=== PATIENT | male | born 1980 | race Caucasian/White ===

== ENCOUNTER 2021-01-29 15:30 | Emergency (ER) | payer OTHER, SELFPAY ==
[2021-01-29 15:47] VITALS: BP 136/91; PULSE 70; RESP 18; TEMP 36.4; O2SAT 97
--- NOTE | 2021-01-29 16:17 | ED.NAVMDI ---
HPI - Nausea/Vomiting/Diarrhea General Chief complaint: Nausea/Vomiting/Diarrhea Stated complaint: Diarrhea,Vomiting Source: patient and RN notes reviewed Mode of arrival: ambulatory History of Present Illness HPI Narrative: This is a 40-year-old male who presented to urgent care with complaints of nausea vomiting diarrhea, dizziness, chills, subjective fever, inability to tolerate solid foods and throat soreness. According to patient Thursday he developed all of the symptoms and has been declining since that day. Patient notes that when he sleep at night to become diaphoretic and his sheets are soaked. The patient denies SOB, CP, palpitation, extremity numbness, lightheadedness, dizziness, constipation, diarrhea, chills, abdominal pain or fever. He has not been exposed to Covid. 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 MD elicited complaint: nausea, vomiting and diarrhea Related Data Allergies Allergy/AdvReac Type Severity Reaction Status Date / Time ampicillin Allergy Unknown Verified 01/29/21 16:20 cephalexin [From Keflex] Allergy Unknown Verified 01/29/21 16:20 Penicillins Allergy Unknown Verified 01/29/21 16:20 Review of Systems Review of Systems: A 14 organ system Review of Systems was performed and pertinent positives included in the HPI, otherwise remaining ROS is negative. Exam Narrative: GENERAL: This is a well-nourished, well-developed patient, in no apparent distress. HEAD: normocephalic, atraumatic. EYES: PERRL. Sclera clear/white. Vision is grossly intact. EARS: External ears normal, auditory canals clear and without drainage, TMs normal without perforation. Hearing grossly intact. NOSE: External nose normal with no obvious nasal discharge, nares without redness, no rhinorrhea. THROAT: Mucous membranes moist, posterior pharynx erythematous NECK: Neck supple, non-tender without lymphadenopathy, masses or thyromegaly. CARDIOVASCULAR: Regular rate and rhythm without murmurs, gallops, or rubs. RESPIRATORY: Clear to auscultation. Breath sounds equal bilaterally. No wheezes, rales, or rhonchi. GASTROINTESTINAL: Abdomen soft, non-tender, nondistended. Bowel sounds are active. No hepato-splenomegaly, or palpable masses. No guarding. SKIN: warm, intact with no suspicious lesions or rash, good texture and turgor. NEURO: awake, alert, and oriented to person, place and time. There were no obvious focal neurologic abnormalities. Steady gait EXTREMITIES: Normal range of motion. No edema. No calf tenderness. Negative Homans sign bilaterally. BACK: Nontender without deformity or crepitance. No flank tenderness. Course Course Emergency Course: Patient will receive Zofran for his nausea and azithromycin for pharyngitis Vital Signs Vital signs: Vital Signs Temperature 97.6 F 01/29/21 15:47 Pulse Rate 70 01/29/21 15:47 Respiratory Rate 18 01/29/21 15:47 Blood Pressure 136/91 H 01/29/21 15:47 Pulse Oximetry 97 01/29/21 15:47 Temperature 97.6 F 01/29/21 15:47 Pulse Rate 70 01/29/21 15:47 Respiratory Rate 18 01/29/21 15:47 Blood Pressure 136/91 H 01/29/21 15:47 Pulse Oximetry 97 01/29/21 15:47 MDM - Nausea/Vomiting/Diarrhea Differential Diagnosis Differential diagnosis: Likely traveler's diarrhea, food poisoning, gastroenteritis, dehydration and other (Pharyngitis) Discharge Plan Discharge Clinical Impression: Gastroenteritis Pharyngitis Qualifiers: Pharyngitis/tonsillitis etiology: unspecified etiology Qualified Code(s): J02.9 - Acute pharyngitis, unspecified Patient Disposition: Home, Self-Care Condition: Stable Instructions: Antibiotic Form, Gastroenteritis (ED), Acute Nausea and Vomiting (ED) Additional Instructions: Viral Gastroenteritis is self-limited; the typical episode lasts 3 to 7 days. Clear liquids for the [id number] hours, then advance to a bland diet as tolerated A bland diet can consist of--BRAT diet which is bananas, rice, applesauce,
--- NOTE | 2021-01-30 12:58 | PC.NURSE ---
Called in azithromycin 500mg po daily x 10 days #10 and zofran 4mg po q 6 hrs #60 called in to [facility] in [place] on [address]. Left on recorded line as recommended by corporate director of pharmacy.
== END 2021-01-29 16:30 | disposition home or self-care (01) ==
PROVIDERS: Emergency Provider Nurse Practitioner
DX: K21.9 Gastro-esophageal reflux disease without esophagitis (principal); J02.9 Acute pharyngitis, unspecified
CPT/HCPCS: 99203; G0463

== ENCOUNTER 2021-12-12 10:02 | Emergency (ER) | payer OTHER, SELFPAY ==
--- NOTE | 2021-12-12 10:06 | ED.UPPEXIN ---
HPI - Extremity Injury (Upper) General Chief Complaint: Extremity Injury, Upper Stated Complaint: lt wrist injury Time Seen by Provider: 12/12/21 10:27 Source: patient and RN notes reviewed Mode of arrival: ambulatory Limitations: no limitations History of Present Illness HPI narrative: 41-year-old male presents with concern for wrist pain. He reports yesterday while at work, pulling a box of another box he began having wrist pain, reports other actions later in the day such as picking up a heavy object exacerbated the pain. He reports a squeezing sort of pain that radiates to digits 4 and 5, moving digits 4 and 5 exacerbates the wrist pain. He denies any direct trauma, injury, fall. He reports pain at rest 4/10, 9/10 with movement or range of motion. He has been using an Arcadio wrap and took Aleve with little relief. He denies swelling, bruising, redness, open skin, deformity MD complaint: injury to: left and wrist Related Data Allergies Allergy/AdvReac Type Severity Reaction Status Date / Time ampicillin Allergy Unknown Verified 12/12/21 10:24 cephalexin [From Keflex] Allergy Unknown Verified 12/12/21 10:24 Penicillins Allergy Unknown Verified 12/12/21 10:24 Review of Systems Review of Systems: CONSTITUTIONAL: Denies malaise, chills, sweats, or fever. SKIN: Denies rash or itching, open skin, laceration, abrasion, redness, warmth, swelling. MUSCULOSKELETAL: Reports left wrist pain NEUROLOGIC: Denies numbness, weakness All systems reviewed & are unremarkable except as noted in HPI and below PMFSH Comments At time of signature, agree with nursing past medical, surgical, social and family history. There is no relevant family history pertinent to the presenting complaint Exam Narrative: GENERAL: Well-appearing, well-nourished, and in no acute distress. HEAD: Normocephalic, atraumatic. EYES: PERRLA, conjunctivae clear NECK: Supple. CHEST: Speaks in full sentences. No respiratory distress. HEART: Regular rate and rhythm. Normal and equal peripheral pulses. EXTREMITIES: Left wrist, hand, digits have has normal sensation, grossly normal range of motion, decreased left commissions specialist strength. No edema or ecchymosis. Normal sensation with sensitivity to light touch and pain. Ulnar tenderness. No open wounds, no skin tenting, no devitalized tissue or atrophy, no trophic changes, no obvious deformity, alignment normal, nearby joints and structures intact. Distal pulses palpable and equal bilaterally, skin warm, dry, pink. Capillary refill less than 3 seconds. SKIN: Warm, dry, no rash. NEURO: Alert and oriented x3. PSYCH: Normal mood and affect Course Course Emergency Course: At the patient's likely diagnosis is tendinitis, wrist sprain. Discussed that we cannot rule out the possibility of fracture without x-ray, however we do not have an x-ray agricultural technician at this location today, offered patient option of going to [place] for x-ray. Patient does not feel that it is broken and is not insistent upon x-ray at this time. Advised patient that if symptoms worsen, do not improve, he develops bruising or swelling he can return at a later date for an x-ray. Patient is aware of diagnosis, understands and agrees to treatment plan. Anticipatory guidance given. Patient agrees to follow-up as directed and is aware of reasons to seek care at the emergency department. Portions of this record may have been created with voice recognition software Level of Care: Express Care Visit Vital Signs Vital signs: Reviewed. Your blood pressure was elevated above 120/80 today at [facility]. This puts you above the threshold for follow up. Please schedule a follow up visit with your personal physician as soon as possible, for further evaluation and treatment. Even blood pressure exceeding 120/80 may indicate pre-hypertension. MDM - Extremity Injury (Upper) MDM Narrative Medical decision making narrative: Patients pain is consistent with musculoskeletal etiolo
[2021-12-12 10:16] VITALS: BP 154/96; PULSE 72; RESP 18; TEMP 36.2; O2SAT 98
== END 2021-12-12 10:43 | disposition home or self-care (01) ==
PROVIDERS: Emergency Provider Nurse Practitioner
DX: M25.532 Pain in left wrist (principal)
CPT/HCPCS: 99212; G0463

== ENCOUNTER 2022-01-06 10:18 | Emergency (ER) | payer OTHER, SELFPAY ==
--- NOTE | ~2022-01-06 | XR_ITS ---
EXAMINATION: XR chest 2V 01/06/2022 10:57 INDICATION: Cough with shortness of breath. Post Covid. PROCEDURE: 2 view chest COMPARISON: No prior studies for comparison. FINDINGS: The lungs are clear. The cardiomediastinal silhouette is within normal limits. There are no pleural effusions. There is no pneumothorax suspected. IMPRESSION: 1: NO ACUTE CARDIOPULMONARY DISEASE. Reviewed, dictated and finalized at location A.
[2022-01-06 10:30] VITALS: BP 149/86; PULSE 76; RESP 18; TEMP 36.6; O2SAT 100
--- NOTE | 2022-01-06 10:48 | ED.URI ---
HPI - URI/Sore Throat General Chief Complaint: Upper Respiratory Infection Stated Complaint: Cough,Sore Throat,Shortness of Breath Time Seen by Provider: 01/06/22 10:21 Source: patient Mode of arrival: ambulatory Limitations: no limitations History of Present Illness HPI Narrative: 41-year-old male presents to [facility] with complaints of continued nonproductive cough, shortness of breath, body aches, chills and fevers up to 101 for the past 8 days. Patient reports he tested positive for COVID on 12/29/2021. Patient reports that he completed a telehealth visit through his employer and was prescribed Paxlovid and albuterol inhaler at that time. Patient does vape. Patient denies recent travel. Patient denies sick contacts. Patient denies wheezing, headache, dizziness or blurred vision. MD elicited complaint: fever, cough, rhinorrhea and nasal congestion Onset (ago): day(s) (8) Able to tolerate fluids by mouth: Yes Associated symptoms: fever and chills Related Data Home Medications Medication Instructions Recorded Confirmed albuterol sulfate 90 mcg/actuation 2 inh inhalation PRN PRN Shortness 01/06/22 01/06/22 aerosol inhaler Of Breath Or Wheezing Allergies Allergy/AdvReac Type Severity Reaction Status Date / Time ampicillin Allergy Unknown Verified 01/06/22 10:39 cephalexin [From Keflex] Allergy Unknown Verified 01/06/22 10:39 Penicillins Allergy Unknown Verified 01/06/22 10:39 Review of Systems Constitutional: Constitutional: Reports chills, Reports fatigue, Reports fever(s) and Denies weakness ENT: Denies dizziness Cardiovascular: Cardiovascular: Denies chest pain Respiratory: Respiratory: Reports chest congestion, Reports cough, Reports dyspnea and Denies wheezing Gastrointestinal: Gastrointestinal: Denies abdominal pain, Denies bloating, Denies constipation and Denies heartburn Neurologic: Denies vertigo and Denies dizziness Endocrine: Endocrine: Denies fatigue PMFSH Past Medical History Medical History (Updated 01/06/22 @ 11:21 by Francia Blackburn APRN) Tonsillectomy planned Social History Social History (Updated 01/06/22 @ 10:53 by Francia Blackburn APRN) Smoking status: Current every day smoker Tobacco type: e-cigarettes/vaping Comments At time of signature, I agree with nursing past medical, surgical, social and family history. There is no relevant family history pertinent to the presenting complaint. Exam Const: General: healthy appearing Nutritional Appearance: well nourished and obese Orientation/consciousness: patient oriented x3 Limitations: no limitations HENMT: Head: normal to inspection Ears: external ears normal and TM's normal bilaterally General nose exam: Normal external nose present and Normal nares present Face and sinus: normal facial exam Mouth: Yes Normal oral and palatal mucosa present, Yes lip normal and Yes moist mucous membranes Teeth and gingiva: dentition normal Throat: posterior oropharynx normal and uvula midline Neck: Neck: normal visual inspection Resp: Effort & Inspection: normal respiratory effort and not labored Auscultation: clear to auscultation bilaterally, no crackles, no rales, no rhonchi and no wheezes Cardio: Rate: regular rate Rhythm: regular rhythm Heart sounds: no murmurs Skin: General skin exam: normal color Rashes: no rashes Wounds: no wounds Neuro: General: patient oriented x3 and moves all extremities Gait exam (Neuro): Normal gait present Extrem: General: normal to inspection Psych: Mental Status: mental status grossly normal Affect: normal affect Attitude: cooperative Course Course Level of Care: Express Care Visit Vital Signs Vital signs: Vital Signs Temperature 36.6 C 01/06/22 10:30 Pulse Rate 76 01/06/22 10:30 Respiratory Rate 18 01/06/22 10:30 Blood Pressure 149/86 H 01/06/22 10:30 Pulse Oximetry 100 01/06/22 10:30 Oxygen Delivery Room Air 01/06/22 10:30 Temperature 36.6 C
[2022-01-06 16:54] VITALS: BP 149/86; PULSE 76; RESP 18; TEMP 36.6; O2SAT 100
== END 2022-01-06 11:30 | disposition home or self-care (01) ==
PROVIDERS: Emergency Provider Nurse Practitioner Family
DX: B34.9 Viral infection, unspecified (principal); Z86.16 Personal history of COVID-19; F17.290 Nicotine dependence, other tobacco product, uncomplicated
CPT/HCPCS: 71046; 99213; G0463

== ENCOUNTER → 2023-01-12 08:11 | Outpatient (CLI) | payer OTHER, SELFPAY ==
--- NOTE | ~2023-01-12 | CT_ITS ---
EXAMINATION: CT abdomen pelvis wo con DATE: 01/12/2023 08:33 INDICATION: Abnormal weight loss. Abdominal pain. Diarrhea. Blood in stool. TECHNIQUE: Computed tomography (CT) of the abdomen and pelvis was performed without intravenous contr ast. Automated exposure control and iterative reconstruction technique were employed. The dose-length product was 1050.35 mGy-cm. COMPARISON: None. FINDINGS: The visualized portions of the lung bases are clear without pneumonia or pleural effusion. The heart size is normal. No pericardial effusion. The liver, gallbladder, spleen, pancreas, adrenal glands, and kidneys are normal. There is no urolithiasis. The prostate is mildly enlarged. There is d iverticulosis of the colon without evidence of diverticulitis. Stool distends the rectum. The appendi x is normal. There is mild aortic atherosclerosis. There is a small sliding hiatal hernia. There are no pathologically enlarged lymph nodes. There is no ascites. There are chronic bilateral L5 pars defe cts. There is 5 mm anterolisthesis of L5 on S1. There is mild thoracic and lumbar spondylosis. IMPRESSION: 1. Stool distends the rectum. 2. Small sliding hiatal hernia. Reviewed, dictated and finalized at location A.
== END ==
PROVIDERS: PCP Nurse Practitioner; Visit Provider Nurse Practitioner
DX: R63.4 Abnormal weight loss (principal); R10.9 Unspecified abdominal pain; K44.9 Diaphragmatic hernia without obstruction or gangrene
CPT/HCPCS: 74176

== ENCOUNTER 2023-09-18 08:22 | Emergency (ER) | payer OTHER, SELFPAY ==
--- NOTE | 2023-09-18 08:23 | ED.URI ---
HPI - URI/Sore Throat General Chief Complaint: Upper Respiratory Infection Stated Complaint: Sinus Time Seen by Provider: 09/18/23 08:30 Source: patient, RN notes reviewed and old records reviewed Mode of arrival: ambulatory Limitations: no limitations History of Present Illness HPI Narrative: 42 yo male presents to the [facility] with multiple complaints. Patient states that on Thursday he started not feeling well. Had some constipation issues on Thursday, took Dulcolax. Normal BM yesterday. States that he started vomiting yesterday multiple times, had trouble keeping fluids down to include water. Has vomited 3 times today. Extremely nauseated. Reports also cough, runny nose, body aches, generalized joint pain and abdominal pain. Reports fever of 101 yesterday. Has taken Tylenol and naproxen Onset (ago): day(s) (3) Able to tolerate fluids by mouth: No Treatments prior to arrival: acetaminophen and other (Dulcolax, naproxen) Related Data Home Medications Medication Instructions Recorded Confirmed No Home Medications 09/18/23 09/18/23 Allergies Allergy/AdvReac Type Severity Reaction Status Date / Time ampicillin Allergy Unknown Verified 09/18/23 08:29 cephalexin [From Keflex] Allergy Unknown Verified 09/18/23 08:29 Penicillins Allergy Unknown Verified 09/18/23 08:29 Review of Systems Review of Systems: All systems reviewed & are unremarkable except as noted in HPI and below Constitutional: Constitutional: Reports no additional constitutional complaints Eyes: Eyes: Reports no additional eye complaints ENT: Reports as per HPI Cardiovascular: Cardiovascular: Reports no additional cardiovascular complaints, Denies chest pain and Denies dyspnea Respiratory: Respiratory: Reports as per HPI, Denies chest congestion, Reports cough and Denies dyspnea Gastrointestinal: Gastrointestinal: Reports as per HPI, Reports abdominal pain, Reports nausea and Reports vomiting Musculoskeletal: Musculoskeletal: Reports no additional musculoskeletal complaints Integumentary/Breasts: Skin/Breast: Reports system reviewed and no additional complaints, except as docu Neurologic: Reports system reviewed and no additional complaints, except as documented Psychiatric: Psychiatric: Reports no additional psychiatric complaints Allergic/Immunologic: Allergic/Immunologic: Reports no additional allergic/immunologic complaints PMFSH Past Medical History Medical History Tonsillectomy planned Social History Social History Smoking status: Current every day smoker Tobacco type: e-cigarettes/vaping Comments At the time of my signature, I reviewed and agree with the nursing past medical, surgical, social, and family history. There is no relevant family history pertinent to the patient complaint. Exam Const: General: cooperative, no acute distress, well developed, alert, ill appearing acutely, uncomfortable and well nourished Nutritional Appearance: well nourished Orientation/consciousness: patient oriented x3 Limitations: no limitations HENMT: Head: normal to inspection Ears: hearing grossly normal bilaterally, external ears normal, TM's normal bilaterally, EAC's normal, mastoids normal and no periauricular adenopathy Face/Nose/Sinus: Normal external nose present, Normal nares present, Normal nasal mucous membranes and turbinates present, normal facial exam and face symmetric Face and sinus: normal facial exam and face symmetric Mouth: Yes lip normal, Yes moist mucous membranes and Yes dry mucous membranes Throat: posterior oropharynx normal, uvula midline and no uvular edema Eyes: General: appearance normal, both eyes and all related structures Alignment and Position: alignment normal Periorbital: periorbital findings normal Pupils: Equal, round and reactive pupils present EOM: EOMs intact bilaterally Neck: Neck
[2023-09-18 08:36] VITALS: BP 133/71; PULSE 61; RESP 16; TEMP 36.8; O2SAT 99
== END 2023-09-18 09:08 | disposition short-term general hospital (02) ==
PROVIDERS: Emergency Provider Nurse Practitioner; PCP Nurse Practitioner
DX: R10.31 Right lower quadrant pain (principal); R10.84 Generalized abdominal pain; R11.2 Nausea with vomiting, unspecified; Z20.822 Contact with and (suspected) exposure to COVID-19
CPT/HCPCS: 87426; 87804; 99213; G0463

== ENCOUNTER 2024-08-10 08:00 | Emergency (ER) | payer OTHER, SELFPAY ==
--- NOTE | 2024-08-10 08:06 | ED.URI ---
HPI - URI/Sore Throat General Chief Complaint: Upper Respiratory Infection Stated Complaint: cold symptoms Time Seen by Provider: 08/10/24 08:06 Source: patient Mode of arrival: ambulatory Limitations: no limitations History of Present Illness HPI Narrative: Mu is a 43 year old male patient presenting to the clinic today with c/o cough, body aches, fever, sneezing, sore throat, congestion x 3-4 days. He report fevers been high as 101? F. Is complaining of joint pain. Denies any chest pain or shortness of breath. MD elicited complaint: fever, cough, sore throat, rhinorrhea and nasal congestion Related Data Allergies Allergy/AdvReac Type Severity Reaction Status Date / Time ampicillin Allergy Unknown Verified 08/10/24 08:06 cephalexin (From Keflex) Allergy Unknown Verified 08/10/24 08:06 Penicillins Allergy Unknown Verified 08/10/24 08:06 Review of Systems Review of Systems: Pertinent positives per HPI. Patient denies any rash, headache, visual changes, dizziness, shortness of breath, chest pain, palpitations, vomiting, diarrhea, constipation, abdominal pain, or any urinary issues. [facility] Past Medical History Medical History Tonsillectomy planned Social History Social History Smoking status: Current every day smoker Tobacco type: e-cigarettes/vaping Comments At the time of my signature, I reviewed and agree with the nursing past medical, surgical, social, and family history. There is no relevant family history pertinent to the patient complaint. Exam Narrative: General: Well-developed, well nourished, in no apparent distress Head: Normocephalic, atraumatic Eyes: Pupils equally round and reactive to light bilaterally, EOM intact, sclera and conjunctive clear, no discharge, lids normal Ears: TMs intact and clear, ear canals clear, no drainage, grossly hearing normal. Nose: Nares patent, clear nasal discharge, mild inflammation, no sinus tenderness. Mouth: Oral pharynx without lesions or masses, good dentition, MMM. Postnasal drip Neck: Supple, trachea midline, no enlargement of anterior or posterior cervical nodes, no thyroid masses or goiter palpable. Cardio: Regular rate and rhythm, s1 and s2 normal, no murmur appreciated. Resp: Clear to auscultation bilaterally, no rhonchi, rales, wheezing or rubs Course Course Emergency Course: Portions of this record may have been created with voice recognition software. Level of Care: Express Care Visit Vital Signs Vital signs: Vital Signs Temperature 36.8 C 08/10/24 08:17 Pulse Rate 73 08/10/24 08:17 Respiratory Rate 18 08/10/24 08:17 Blood Pressure 152/90 H 08/10/24 08:17 Pulse Oximetry 100 08/10/24 08:17 Oxygen Delivery Room Air 08/10/24 08:17 Temperature 36.8 C 08/10/24 08:17 Pulse Rate 73 08/10/24 08:17 Respiratory Rate 18 08/10/24 08:17 Blood Pressure 152/90 H 08/10/24 08:17 Pulse Oximetry 100 08/10/24 08:17 Oxygen Delivery Room Air 08/10/24 08:17 Vital signs reviewed MDM - URI/Sore Throat MDM Narrative Medical decision making narrative: At the time of visit patient is resting comfortably on the exam table. Patient appears to be nontoxic. Labs: COVID and influenza testing was performed. All testing was negative. Plan: I suspect patient has URI with cough congestion/viral syndrome. Prescription for Tessalon Perles and ondansetron. Supportive measures were discussed with the patient and they voiced understanding discharge instructions and agrees to treatment plan. Return precautions reviewed Differential Diagnosis Differential diagnosis: Likely upper respiratory infection, otitis media, sinusitis, viral infection, bronchitis, influenza, pharyngitis and other (COVID) Discharge Plan Discharge Clinical Impression: Upper respiratory infection with cough and congestion, Viral infection Patient Disposition: Home, Self-Care Condition: Stable Instructions: Antibiotic Form, Upper Respiratory Infection (ED), Cold Symptoms (ED) Additional Instructions: Take prescription medications only as prescribed-ondansetron for nausea May take Mucinex as needed for the cough during the day and Tessalon Perles at nighttime. Increase fluids and stay well hydrated Tylenol/motrin for pain/fever Flonase and OTC antihistamines as directed Vicks vapor rub to open sinuses Sinus rinses for congestion Cepacol spray, cough drops, throat lozenges, warm tea with honey/lemon, gargle salt water to soothe throat BRAT diet for diarrhea Clear liquids x 24 hours then advance as tolerated for nausea/vomiting Go to the ED if you develop a worsening in your condition- high fever not controlled by Tylenol or Motrin, dehydration, weakness, lethargy, shortness of breath, or chest pain. Follow up with your PCP in 3-5 days if symptoms persist. Patient Language: Kyrgyz Prescriptions: New ondansetron 4 mg tablet,disintegrating 4 mg PO Q6H PRN (Reason: nausea and vomiting) 3 Days Qty: 12 0RF benzonatate 200 mg capsule 200 mg PO TID 7 Days Qty: 21 0RF Follow-up/Referrals: Angel,MARLYN Caballero [Primary Care Provider] - Stand Alone Forms: Work/School Release IP Time of Disposition: 08:22 Quality NIHSS Nursing Documentation ED NIHSS nursing documentation: reviewed/agree
--- OUTSIDE RECORDS SUMMARY | 2024-08-10 08:10 | XMS_ITS | Clinical Summary ---
Author Organization [facility] [employer] Address [address] [place] [address] Care Team Providers Care Front Office Developer Name Role Phone Unavailable Primary Care Provider Unavailabl e Source Comments [facility] [employer],non-owned Affiliates and Associated Physician Practices is amultiple site organization consisting of ambulatory clinics and hospital sitesin [place], [place], [place] and [place]. This disclosure is being madepursuant to the Care Everywhere program and may not contain all information available regarding this patient. Last updated 18.[facility] [employer] Social History Tobacco Use Types Packs/Day Years Used Date Smoking Tobacco: Never Assessed Sex and Gender Information Value Date Recorded Sex Assigned at Not on file Gender Identity Not on file Sexual Orientation Not on file Plan of Treatment Health Maintenance Due Date Last Done Comments COLOGUARD (AGES 45-75) - COL ON CA SCREENING 1978 COLON MONITORING 1978 COLONOSCOPY - COLON CA SCREENING 1978 CT COLONOGRAPHY - COLON CA SCREENING 1978 Colorectal Cancer Screening 1978 FIT - COLON CA SCREENING 1978 FLEX SIG - COLON CA SCREENING 1978 LIPID TESTING 1978 HIV SCREENING 1993 HEPATITIS C SCREENING 10/12/1996 DTAP/TDAP/TD VACCINES (1 - Tdap) 1997 HEPATITIS B VACCINE (1 of 3 - 19+ 3-dose series) 1997 COVID-19 VACCINE ( - 2023-2 5 season) 2024 INFLUENZA VACCINE (#1) 2024 DEPRESSION SCREENING 06/01/2024 ZOSTER VACCINE (1 of 2) 2028 HIB VACCINE Aged Out No longer eligi ble based on patient's age to complete this topic HPV VACCINE Aged Out No longer eligi ble based on patient's age to complete this topic MENINGOCOCCAL (Group B) VACC INE SHARED DECISION-MAKING Aged Out No longer eligibl e based on patient's age to complete this topic MENINGOCOCCAL GROUPS A/C/Y/W VACCINE Aged Out No longer eligible b ased on patient's age to complete this topic PNEUMOCOCCAL VACCINE Aged Out No long er eligible based on patient's age to complete this topic
--- OUTSIDE RECORDS SUMMARY | 2024-08-10 08:10 | XMS_ITS | Patient Health Summary ---
Author Organization [facility] [employer] Address [address] [facility] [place] [place] [address] Care Team Providers Care Manufacturing Business Analyst Name Role Phone Unavailable Primary Care Provider Unavailabl e Note from [facility],non-owned Affiliates and Associated Physician Practices is amultiple site organization consisting of ambulatory clinics and hospital sitesin [place], [place], [place] and [place]. This disclosure is being madepursuant to the Care Everywhere program and may not contain all information available regarding this patient. Last updated 18.[facility] [employer] Social History Tobacco Use Types Packs/Day Years Used Date Smoking Tobacco: Never Assessed Sex and Gender Information Value Date Recorded Sex Assigned at Not on file Gender Identity Not on file Sexual Orientation Not on file Procedures * SKIN TEST PPD - POINT OF CARE(Performed 12/09/2018) Performed for Screening for tuberculosis Results * SKIN TEST PPD - POINT OF CARE (12/09/2018) PPD 0mm Comment:No induration Other MISCELLANEOUS SAMPLE S / Unknown 12/09/2018 Oscar Francis CHILDREN'S SERVICE SUPERVISOR-SPECIMEN PREPARATION ASSISTANT LAB - POINT OF CARE ORDERABLES
--- OUTSIDE RECORDS SUMMARY | 2024-08-10 08:10 | XMS_ITS | Referral Summary ---
Author Organization [facility] Address [address] [place] [address] Care Team Providers Care Social Secretary Name Role Phone Unavailable Primary Care Provider Unavailabl e Source Comments [facility],non-owned Affiliates and Associated Physician Practices is amultiple site organization consisting of ambulatory clinics and hospital sitesin [place], [place], [place] and [place]. This disclosure is being madepursuant to the Care Everywhere program and may not contain all information available regarding this patient. Last updated 18.[facility] Social History Tobacco Use Types Packs/Day Years Used Date Smoking Tobacco: Never Assessed Sex and Gender Information Value Date Recorded Sex Assigned at Not on file Gender Identity Not on file Sexual Orientation Not on file Plan of Treatment Not on file Administered Medications
--- OUTSIDE RECORDS SUMMARY | 2024-08-10 08:16 | XMS_ITS | Encounter Summary ---
Author Organization [facility] Address [address] [place] [address] Care Team Providers Care Masonry Contractor Name Role Phone Carley Ortiz NP Primary Care Provider +1 [phone] Encounter Details Date Type Department Care Team (Late st Contact Info) Description 06/30/2023 Pivotstream Message Enc [facility] Medical Group Family Medicine - [place] [address] [place] [address] Carley Ortiz, PAUL [address] [place] [address] Short term disability Social History Tobacco Use Types Packs/Day Years Used Date Smoking Tobacco: Former Cigarettes 0.5 20 1 0 - 2009 Passive Smoke Exposure: Past Smokeless Tobacco: Current Alcohol Use Standard Drinks/Week Comments Yes 0 (1 standard drink = 0.6 oz pur e alcohol) rare, maybe twice yearly PHQ-2 Answer Date Recorded Patient Health Questionnaire-2 Score 0 07/03/2023 Sex and Gender Information Value Date Recorded Sex Assigned at Not on file Legal Sex Male 1:49 PM CDT Gender Identity Not on file Sexual Orientation Not on file documented as of this encounter Progress Notes * Amarilis Blake MA - 06/30/2023 2:24 PM CST I contacted the patient to inform him that we have not received any paperwork from [facility]. He asked me to my chart him out fax number and he will call them and has them re-fax. I sent the fax number via my chart RONMENTAL AUDITOR * Carley Ortiz NP - 06/30/2023 1:58 PM CST Will you inform pt what we discussed. RONMENTAL AUDITOR documented in this encounter Plan of Treatment Not on file documented as of this encounter Visit Diagnoses Not on filedocumented in this encounter Additional Health Concerns Assessment Noted Time PHQ-9 Depression Total Score: 11 023 8:27 AM CDT documented as of this encounter Care Teams Masonry Contractor Relationship Specialty Start Date End Date Carley Ortiz NP [address] [place] [address] PCP - General NURSE PRACTITIONER 01/07/23 documented as of this encounter
--- OUTSIDE RECORDS SUMMARY | 2024-08-10 08:16 | XMS_ITS | Encounter Summary ---
Author Organization [facility] Address [address] [place] [address] Care Team Providers Care Supervisor Phosphorus Processing Name Role Phone Carley Ortiz NP Primary Care Provider +1 [phone] Encounter Details Date Type Department Care Team (Late st Contact Info) Description 03/09/2023 DealTraction Message Enc [facility] Medical Group Family Medicine - [place] [address] [facility] [address] [facility] [place] [address] Carley Ortiz NP [address] [place], [place] [address] follow up Social History Tobacco Use Types Packs/Day Years Used Date Smoking Tobacco: Former Cigarettes 0.5 20 Passive Smoke Exposure: Past Smokeless Tobacco: Never Alcohol Use Standard Drinks/Week Comments Yes 0 (1 standard drink = 0.6 oz pur e alcohol) rare, maybe twice yearly PHQ-2 Answer Date Recorded Patient Health Questionnaire-2 Score 1 01/07/2023 Sex and Gender Information Value Date Recorded Sex Assigned at Not on file Legal Sex Male 1:49 PM CDT Gender Identity Not on file Sexual Orientation Not on file documented as of this encounter Plan of Treatment Not on file documented as of this encounter Visit Diagnoses Not on filedocumented in this encounter Additional Health Concerns Assessment Noted Time PHQ-9 Depression Total Score: 11 023 8:27 AM CDT documented as of this encounter Care Teams Supervisor Phosphorus Processing Relationship Specialty Start Date End Date Carley Ortiz NP [address] [place] [address] PCP - General NURSE PRACTITIONER 01/07/23 documented as of this encounter
--- OUTSIDE RECORDS SUMMARY | 2024-08-10 08:16 | XMS_ITS | Encounter Summary ---
Author Organization [facility] Address [address] [place] [address] Care Team Providers Care Seasonal Greenery Bundler Name Role Phone Carley Ortiz NP Primary Care Provider [phone] [phone] Encounter Details Date Type Department Care Team (Late st Contact Info) Description 10/27/2023 IDINCU Message Enc [facility] Medical Group G[facility] [address] [address] Emeterio Leroy MD [address] [place] [address] Lactulose Social History Tobacco Use Types Packs/Day Years Used Date Smoking Tobacco: Former Cigarettes 0.5 20 1 0 - 2009 Passive Smoke Exposure: Past Smokeless Tobacco: Never Alcohol Use Standard Drinks/Week Comments Yes 0 (1 standard drink = 0.6 oz pur e alcohol) rare, maybe twice yearly PHQ-2 Answer Date Recorded Patient Health Questionnaire-2 Score 0 10/23/2023 Sex and Gender Information Value Date Recorded [...] Noted Time PHQ-9 Depression Total Score: 11 01/07/ 023 8:27 AM CDT documented as of this encounter Care Teams Seasonal Greenery Bundler Relationship Specialty Start Date End Date Carley Ortiz NP [address] [place] [address] PCP - General NURSE PRACTITIONER 01/07/23 documented as of this encounter
--- OUTSIDE RECORDS SUMMARY | 2024-08-10 08:16 | XMS_ITS | Encounter Summary ---
Author Organization [facility] Address [address] [place] [address] Care Team Providers Care Paper Box Cutter Name Role Phone Carley Ortiz NP Primary Care Provider +1 [phone] Encounter Details Date Type Department Care Team (Late st Contact Info) Description 06/15/2023 Reverb Technologiest Message Enc [facility] Medical Group Multispecialty Care - [facility] [address] [place] [id number] Emeterio Leroy MD [address] [place], [place] [id number] CT scan Social History Tobacco Use Types Packs/Day Years Used Date Smoking Tobacco: Former Cigarettes 0.5 20 1 990 - 2010 Passive Smoke Exposure: Past Smokeless Tobacco: Current [...] documented as of this encounter Care Teams Paper Box Cutter Relationship Specialty Start Date End Date Carley Ortiz NP [address] [place] [address] PCP - General NURSE PRACTITIONER 01/07/23 documented as of this encounter
--- OUTSIDE RECORDS SUMMARY | 2024-08-10 08:16 | XMS_ITS | Encounter Summary ---
Author Organization [facility] Address [address] [place] [address] Care Team Providers Care Oiling Machine Operator Name Role Phone Carley Ortiz NP Primary Care Provider [phone] [phone] Encounter Details Date Type Department Care Team (Late st Contact Info) Description 01/08/2023 Nano Terra Message Enc [facility] Medical Group Family Medicine - [place] [address] [facility] [address] [place] [address] Jose, [facility] Provider Shot term disibility forms Social History Tobacco Use Types Packs/Day Years [...] Progress Notes * Amarilis Blake MA - 01/12/2023 1:23 PM CDT I spoke with patient and informed him of his CT scan results and scheduled a 40 minute apt on 01/15/23 * Carley Ortiz NP - 01/12/2023 9:07 AM CDT Can you see when pt has his CT scan scheduled. Once back it would be easier to just go over the form with him in the office with what to put down. When he schedules have him be 40 min apt. documented in this encounter Plan of Treatment Not on file documented as of this encounter Visit Diagnoses Not on filedocumented in this encounter Additional Health Concerns Assessment Noted Time PHQ-9 Depression Total Score: 11 023 8:27 AM CDT documented as of this encounter Care Teams Oiling Machine Operator Relationship Specialty Start Date End Date Carley Ortiz NP [address] [place] [address] PCP - General NURSE PRACTITIONER 01/07/23 documented as of this encounter
--- OUTSIDE RECORDS SUMMARY | 2024-08-10 08:16 | XMS_ITS | Encounter Summary ---
Author Organization [facility] Address [address] [place] [address] Care Team Providers Care Radial Drill Press Operator For Plastic Name Role Phone Carley Ortiz NP Primary Care Provider [phone] [phone] Encounter Details Date Type Department Care Team (Late st Contact Info) Description 09/30/2023 OpTier Message Enc [facility] Medical Group Family Medicine - [place] [address] [facility] [address] [place], [place] [phone] Carley Ortiz NP [address] [place] [address] lowFODMAP diet Social History Tobacco Use Types Packs/Day Years Used Date Smoking Tobacco: Former Cigarettes 0.5 20 1 - 2009 Passive Smoke Exposure: Past Smokeless [...] as of this encounter Progress Notes * Carley Ortiz NP - 09/30/2023 12:44 PM CDT Forms completed. documented in this encounter Plan of Treatment Not on file documented as of this encounter Visit Diagnoses Not on filedocumented in this encounter Additional Health Concerns Assessment Noted Time PHQ-9 Depression Total Score: 11 023 8:27 AM CDT documented as of this encounter Care Teams Radial Drill Press Operator For Plastic Relationship Specialty Start Date End Date Carley Ortiz NP [address] [place] [address] PCP - General NURSE PRACTITIONER 01/07/23 documented as of this encounter
--- OUTSIDE RECORDS SUMMARY | 2024-08-10 08:16 | XMS_ITS | Clinical Summary ---
Author Organization [facility] Address [address] [place] [address] Care Team Providers Care Housekeeping Supervisor Hotel Name Role Phone Carley Ortiz NP Primary Care Provider +1 [phone] Allergies Active Allergy Reactions Criticality Noted Date Comments Ampicillin Unknown 01/07/2023 As a child. Per mother Cephalexin Unknown 01/07/2023 Per mother, as a child Penicillins Unknown 01/07/2023 Was told by mother. As a child Topiramate Fatigue 01/07/2023 Made him not feel well at all Medications amitriptyline (ELAVIL) 25 MG tabletIndications:I nsomnia, unspecified type,Irritable bowel syndrome with constipation Take 1 tablet (25 mg total) by mouth nightly at bedtime. 90 tablet 1 4 Active ondansetron (ZOFRAN-ODT) 4 MG disintegrating tabletIndications:N ausea Take 1 tablet (4 mg total) by mouth every 8 (eight) hours as needed for Nausea. 20 tablet 4 Active Active Problems Problem Noted Date Diagnosed Date Obesity (BMI 35.0-39.9 without comorbidity) 09/30 Insomnia, unspecified type 10/27/2023 Chronic constipation 10/27/2023 Nausea 10/27/2023 Blood in stool 05/27/2023 Immunizations Name Administration Dates Next Due Hepatitis B (Generic: Adult) 12/11/2018 MODERNA COVID-19 (12+) MRNA, LNP-S, PF, 100 MCG/ 0.5 ML DOSE 08/01/2020,07/03/2020 Family History Medical History Relation Comments Cancer Maternal Uncle Drug Abuse Maternal Uncle Alcohol Abuse Mother Breast Cancer Mother Drug Abuse Mother Cancer Paternal Uncle Drug Abuse Paternal Uncle Relation Status Comments Maternal Uncle Mother Paternal Uncle Social History Tobacco Use Types Packs/Day Years Used Date Smoking Tobacco: Former Cigarettes 0.5 20 1 990 - 2009 Passive Smoke Exposure: Past Smokeless Tobacco: Never Tobacco Cessation:Counseling Given: Yes Alcohol Use Standard Drinks/Week Comments Yes 0 (1 standard drink = 0.6 oz pur e alcohol) rare, maybe twice yearly PHQ-2 Answer Date Recorded Patient Health Questionnaire-2 Score 0 10/23/2023 Sex and Gender Information Value Date Recorded Sex Assigned at Not on file Legal Sex Male 1:49 PM CDT Gender Identity Not on file Sexual Orientation Not on file Last Filed Vital Signs Vital Sign Reading Time Taken Comments Blood Pressure 104/72 10/27/2023 8:41 AM CDT Pulse 81 10/27/2023 8:41 AM CDT Temperature 36.1 C (96.9 F) 10/27/2023 8:41 AM CDT Respiratory Rate 16 10/27/2023 8:41 AM CDT Oxygen Saturation 100% 10/27/2023 8:41 AM CDT Inhaled Oxygen Concentration - - Weight 105.7 kg (233 lb) 10/27/2023 8:41 AM CDT Height 170.2 cm (5' 7 ) 10/27/2023 8:41 AM CDT Body Mass Index 36.49 10/27/2023 8:41 AM CDT Plan of Treatment Health Maintenance Due Date Last Done Comments DTaP, Tdap and Td Vaccines ( 1 - Tdap) 1997 Hepatitis B Vaccines (2 of 3 - 19+ 3-dose series) 01/08/2019 12/11/2018 COVID-19 Vaccine (2023-2 5 season) 2024 08/01/2020, 07/03/2020 Influenza Adult (#1) 2024 PHQ-2 (Physician [place]) 06/01/2024 10/23/2023 PHQ-2 (Physician [place]) 10/22/2024 10/23/2023 Annual Physical 10/26/2024 10/27/2023 Colorectal Cancer Screening Colonoscopy (10 Years) 06/03/2033 06/03/2023 Hepatitis C Completed 01/07/2023 HPV Vaccines Aged Out No longer eligi ble based on patient's age to complete this topic Meningococcal B Vaccine Aged Out No l onger eligible based on patient's age to complete this topic Meningococcal Vaccine Aged Out No masoud efrain eligible based on patient's age to complete this topic Pneumococcal Vaccine: Pediatrics (0 to 5 Years) and At-Risk Patients (6 to 64 Years) Aged Out No longer eligible b ased on patient's age to complete this topic RSV Immunizations Under 20 Months Aged Out No longer eligible b ased on patient's age to complete this topic Procedures Procedure Name Priority Date/Time Associated Diagnosis Comments HEPATITIS C ANTIBODY Routine 01/07/2023 9:17 AM CDT Need for hepatitis C screening test from Last 3 Months or Most Recently Relevant to Health Maintenance Results * HEPATITIS C ANTIBODY (01/07/2023 9:17 AM CDT) HEPATITIS C AB NON-REACTI VE NON-REACT JAK 01/07/2023 6:43 PM CDT [facility] Comment: ANTIBODIES TO HCV NOT DETECTED. DOES NOT EXCLUDE THE POSSIBILITY OF EXPOSURE TO HCV. 01/07/2023 9:17 AM CDT us Carley Ortiz TRIMMING DEPARTMENT BLOCKER LABORATORY Final Res ult [facility] [address] [place] [address], [id number] from Last 3 Months or Most Recently Relevant to Health Maintenance Insurance [facility] Care Teams Housekeeping Supervisor Hotel Relationship Specialty Start Date End Date Carley Ortiz NP [address] [place] [address] PCP - General NURSE PRACTITIONER 01/07/23
--- OUTSIDE RECORDS SUMMARY | 2024-08-10 08:16 | XMS_ITS | Encounter Summary ---
Author Organization [facility] Address [address] [place] [address] Care Team Providers Care Marketing Communications Manager Name Role Phone Carley Ortiz NP Primary Care Provider +1 [phone] Encounter Details Date Type Department Care Team (Late st Contact Info) Description 07/01/2023 [employer] Message Enc [facility] Medical Group Multispecialty Care - [address] [place] [phone] [facility] Provider appointment Social History Tobacco Use Types Packs/Day Years [...] documented as of this encounter Care Teams Marketing Communications Manager Relationship Specialty Start Date End Date Carley Ortiz, WELDER PLASTIC [address] [place] [address] PCP - General NURSE PRACTITIONER 01/07/23 documented as of this encounter
--- OUTSIDE RECORDS SUMMARY | 2024-08-10 08:16 | XMS_ITS | Encounter Summary ---
Author Organization [facility] Address [address] [place] [address] Care Team Providers Care Airfreight Loading Supervisor Name Role Phone Carley Ortiz NP Primary Care Provider +1 [phone] Encounter Details Date Type Department Care Team (Late st Contact Info) Description 03/09/2023 Independent Bank Message Enc [facility] Medical Group Family Medicine - [place] [address] [facility] [address] [facility] [place] [address] Carley Ortiz NP [address] [place], [place] [address] follow up Social History Tobacco Use Types [...] documented as of this encounter Care Teams Airfreight Loading Supervisor Relationship Specialty Start Date End Date Carley Ortiz NP [address] [place] [address] PCP - General NURSE PRACTITIONER 01/07/23 documented as of this encounter
[2024-08-10 08:17] VITALS: BP 152/90; PULSE 73; RESP 18; TEMP 36.8; O2SAT 100
[2024-08-10 08:35] LABS: EDCOVIDSCREEN Negative (Negative); EDINFLUASCREEN Negative (Negative); EDINFLUBSCREEN Negative (Negative)
== END 2024-08-10 08:35 | disposition home or self-care (01) ==
PROVIDERS: Emergency Provider Nurse Practitioner Family; PCP Nurse Practitioner
DX: J06.9 Acute upper respiratory infection, unspecified (principal); R05.9 Cough, unspecified; B34.9 Viral infection, unspecified; Z20.822 Contact with and (suspected) exposure to COVID-19; F17.290 Nicotine dependence, other tobacco product, uncomplicated
CPT/HCPCS: 87426; 87804; 99213; G0463

== ENCOUNTER 2024-11-03 08:52 | Emergency (ER) | payer OTHER, SELFPAY ==
--- NOTE | 2024-11-03 08:54 | ED.URI ---
HPI - URI/Sore Throat General Chief Complaint: Nausea/Vomiting/Diarrhea Stated Complaint: cold like Time Seen by Provider: 11/03/24 08:56 Source: patient Mode of arrival: ambulatory Limitations: no limitations History of Present Illness HPI Narrative: Mu is a 44-year-old male patient presenting to the clinic today with complaints of nausea, vomiting, diarrhea, abdominal cramping, and fever.. He reports symptoms started Thursday night after eating at a local restaurant for his anniversary. Thought initially he may have food poisoning. Temperature was a 100.8?. Is having chills and body aches. States that he has had numerous episodes of vomiting and diarrhea. No blood in stool. States that he has had generalized abdominal cramping rates his pain currently a 5/10. Is able to keep down sips of water but any time he eats anything he vomits. Got up to the vomit this morning and fell as though everything was going white. Denies any urinary symptoms. Related Data Allergies Allergy/AdvReac Type Severity Reaction Status Date / Time ampicillin Allergy Unknown Verified 11/03/24 09:04 cephalexin (From Keflex) Allergy Unknown Verified 11/03/24 09:04 Penicillins Allergy Unknown Verified 11/03/24 09:04 Review of Systems Review of Systems: Pertinent positives per HPI. Patient denies any rash, headache, visual changes, dizziness, cough, shortness of breath, chest pain, palpitations, abdominal pain, or any urinary issues. PMFSH Past Medical History Medical History Tonsillectomy planned Social History Social History Smoking status: Current every day smoker Tobacco type: e-cigarettes/vaping Comments At the time of my signature, I reviewed and agree with the nursing past medical, surgical, social, and family history. There is no relevant family history pertinent to the patient complaint. Exam Narrative: General: Well-developed, well nourished, in no apparent distress Head: Normocephalic, atraumatic Eyes: Pupils equally round and reactive to light bilaterally, EOM intact, sclera and conjunctive clear, no discharge, lids normal Ears: TMs intact and clear, ear canals clear, no drainage, grossly hearing normal. Nose: Nares patent, no discharge, no inflammation, no sinus tenderness. Mouth: Oral pharynx without lesions or masses, good dentition, MM dry. Neck: Supple, trachea midline, no enlargement of anterior or posterior cervical nodes, no thyroid masses or goiter palpable. Cardio: Regular rate and rhythm, s1 and s2 normal, no murmur appreciated. Resp: Clear to auscultation bilaterally, no rhonchi, rales, wheezing or rubs Abdomen: Soft, pliable, bowel sounds present in all quadrants, generalized tender to palpation, no organomegly, no CVAT tenderness. Course Course Emergency Course: Portions of this record may have been created with voice recognition software. Level of Care: Express Care Visit Vital Signs Vital signs: Vital Signs Temperature 36.3 C L 11/03/24 08:56 Pulse Rate 64 11/03/24 08:56 Respiratory Rate 20 11/03/24 08:56 Blood Pressure 144/81 H 11/03/24 08:56 Pulse Oximetry 100 11/03/24 08:56 Oxygen Delivery Room Air 11/03/24 08:56 Temperature 36.3 C L 11/03/24 08:56 Pulse Rate 62 11/03/24 09:17 Respiratory Rate 20 11/03/24 08:56 Blood Pressure 134/88 11/03/24 09:17 Pulse Oximetry 100 11/03/24 08:56 Oxygen Delivery Room Air 11/03/24 08:56 Vital signs reviewed MDM - URI/Sore Throat MDM Narrative Medical decision making narrative: At the time of visit patient is resting comfortably on the exam table. Patient appears to be nontoxic. Medications: Zofran 4 mg ODT given in the clinic today-this improved patient's nausea. He is able to sip water Labs: COVID and Influenza test was performed and was negative. Bedside glucose was 102. Orthostatic blood pressures: Lying blood pressure was 146/88 to with heart rate of 52, sitting blood pressure was 141/80 with heart rate is 66, standing blood pressure 134/88 with heart rate of 62 Plan: I suspect patient has gastroenteritis with mild dehydration. Orthostatic blood pressures were within normal limits. COVID and influenza testing was negative in his blood sugar was 102. Recommend going to the emergency room if if symptoms worsen and he voiced understanding. Supportive measures were discussed with the patient and they voiced understanding discharge instructions and agrees to treatment plan. Return precautions reviewed Differential Diagnosis Differential diagnosis: Likely viral infection, influenza and other (COVID, norovirus, gastroenteritis, small-bowel obstruction, ileus, acute infectious diarrhea, colitis, irritable bowel syndrome, food poisoning, hypoglycemia, hypovolemia) Lab Data Labs: Lab Results 11/03/24 11/03/24 Range/Units 09:08 09:11 POC Capillary Glucose 102 (65-105) mg/dl POC Influenza A Ag Negative (Negative) POC Influenza B Ag Negative (Negative) POC SARS CoV-2 Ag Negative (Negative) Discharge Plan Discharge Clinical Impression: Gastroenteritis, Dehydration, mild Patient Disposition: Home Condition: Stable Instructions: Antibiotic Form, Dehydration (ED), Gastroenteritis (ED) Additional Instructions: COVID and influenza testing was negative in the clinic today. Blood sugar was normal-102 Orthostatic blood pressures were within normal limits I suspect you likely have gastroenteritis with mild dehydration. Take prescription medications only as prescribed-ondansetron and Levsin. May take Imodium as needed for diarrhea as long as there is no blood in your stool. Increase fluids and stay well hydrated Tylenol/motrin for pain/fever BRAT diet for diarrhea Clear liquids x 24 hours then advance as tolerated for nausea/vomiting Go to the ED if you develop a worsening in your condition- high fever not controlled by Tylenol or Motrin, dehydration, weakness, lethargy, shortness of breath, or chest pain. Follow up with your PCP in 3-5 days if symptoms persist. Patient Language: Citizen Of [place] Prescriptions: New ondansetron 4 mg tablet,disintegrating 4 mg PO Q6H PRN (Reason: nausea and vomiting) 3 Days Qty: 12 0RF hyoscyamine sulfate [Oscimin] 0.125 mg tablet 0.125 mg PO QID PRN (Reason: dyspepsia) 3 Days Qty: 12 0RF No Action ondansetron 4 mg tablet,disintegrating 4 mg PO Q6H PRN (Reason: nausea and vomiting) 3 Days Qty: 12 0RF benzonatate 200 mg capsule 200 mg PO TID 7 Days Qty: 21 0RF Follow-up/Referrals: Angel,MARLYN Caballero [Primary Care Provider] - Time of Disposition: 09:30 Quality NIHSS Nursing Documentation ED NIHSS nursing documentation: reviewed/agree
[2024-11-03 08:56] VITALS: BP 144/81; PULSE 64; RESP 20; TEMP 36.3; O2SAT 100
[2024-11-03 09:15] VITALS: BP 146/88; PULSE 52
[2024-11-03 09:16] VITALS: BP 141/88; PULSE 66
[2024-11-03 09:17] VITALS: BP 134/88; PULSE 62
[2024-11-03 09:20] LABS: Glucose Point of Care 102 mg/dl (65-105)
--- OUTSIDE RECORDS SUMMARY | 2024-11-03 09:20 | XMS_ITS | Clinical Summary ---
Author Organization [facility] Address [address] [place] [address] Care Team Providers Care Software Developer Intern Name Role Phone Unavailable Primary Care Provider Unavailabl e Source Comments [facility],non-owned Affiliates and Associated Physician Practices is amultiple site organization consisting of ambulatory clinics and hospital sitesin [place], [place], [place] and [place]. This disclosure is being madepursuant to the Care Everywhere program and may not contain all information available regarding this patient. Last updated 18.[facility] Social History Tobacco Use Types Packs/Day Years Used Date Smoking Tobacco: Never Assessed Sex and Gender Information Value Date Recorded Sex Assigned at Not on file Legal Sex Male 11:09 AM CDT Gender Identity Not on file Sexual [...] HEPATITIS B VACCINE (1 of 3 - + 3-dose series) 1997 COVID-19 VACCINE (2023-2 5 season) 2024 DEPRESSION SCREENING 06/01/2024 INFLUENZA VACCINE (Season Ended) 2025 ZOSTER VACCINE (1 of 2) 2028 HIB [...]
[2024-11-03 09:26] LABS: EDCOVIDSCREEN Negative (Negative)
[2024-11-03 09:27] LABS: EDINFLUASCREEN Negative (Negative); EDINFLUBSCREEN Negative (Negative)
[2024-11-03] MEDS: ONDANSETRON HCL ODT 4 MG TABLET SUBLINGUAL (09:27)
== END 2024-11-03 09:56 | disposition home or self-care (01) ==
PROVIDERS: Emergency Provider Nurse Practitioner Family; PCP Nurse Practitioner
DX: K52.9 Noninfective gastroenteritis and colitis, unspecified (principal); E86.0 Dehydration; Z20.822 Contact with and (suspected) exposure to COVID-19; F17.290 Nicotine dependence, other tobacco product, uncomplicated
CPT/HCPCS: 82948; 87426; 87804; 99213; A9270; G0463